=== PATIENT | female | born 1935 | race Caucasian/White ===

== ENCOUNTER 2019-04-27 07:24 | Day surgery (SDC) | payer OTHER, MEDICARE ==
[2019-04-22 10:39] VITALS: BMI 22.3
[2019-04-27] MEDS ORDERED: MIDAZOLAM HCL 2 MG/2 ML SINGLE DOSE VIAL ONE (07:47)
[2019-04-27] MEDS ORDERED: ceFAZolin SODIUM 1 GM VIAL ONE (08:55)
[2019-04-27] MEDS ORDERED: PROPOFOL 20 ML ONE ×4 (08:56→13:10)
[2019-04-27] MEDS ORDERED: POVIDONE-IODINE 5% OPHTHALMIC PREP 30 ML SOLUTION ONE (10:29)
[2019-04-27] MEDS ORDERED: LIDOCAINE 1%/EPI 1:100000 (20 ML MULTI DOSE VIAL) ONE (10:30)
[2019-04-27] MEDS ORDERED: BUPIVACAINE HCL/PF 0.5% (5MG/ML) 10 ML VIAL ONE (10:30)
[2019-04-27] MEDS ORDERED: ERYTHROMYCIN 0.5% OPHTHALMIC OINTMENT 3.5 GM TUBE ONE (10:45)
[2019-04-27] MEDS ORDERED: DEXAMETHASONE SOD PHOSPHATE 4 MG/1 ML VIAL ONE (11:02)
[2019-04-27] MEDS ORDERED: ONDANSETRON 4 MG/2 ML VIAL ONE (11:02)
[2019-04-27] MEDS ORDERED: GUM MASTIC/STORAX/MSAL/ALCOHOL 1 DRP DROPSBTL MC ONE (12:42)
[2019-04-27] MEDS ORDERED: oxyCODONE HCL 5 MG TABLET PO PRN (14:25)
[2019-04-27] MEDS ORDERED: ONDANSETRON 4 MG/2 ML VIAL IVPUSH PRN (14:25)
[2019-04-27] MEDS ORDERED: LACTATED RINGERS SOLUTION 1,000 ML IV SCH (14:30)
--- NOTE | 2019-04-27 14:43 | OP ---
DATE OF OPERATION: 04/27/2019 PREOPERATIVE DIAGNOSIS: Extensive defect, right medial canthus, right nasal sidewall, right lower lid, status post Mohs excision of tumor. POSTOPERATIVE DIAGNOSIS: Extensive defect, right medial canthus, right nasal sidewall, right lower lid, status post Mohs excision of tumor. PROCEDURE: 1. Debridement and tailoring of defect, right medial canthus. 2. Glabellar rotational flap to right medial canthus. 3. Rhomboid rotational flap from right cheek to right medial canthus. 4. Skin muscle flap advancement from right lower lid to right medial canthus. 5. Right medial canthoplasty. 6. Lateral canthal tendon plication, right lower lid. SURGEON: Jamila Allen MD ANESTHESIA: LMA. COMPLICATIONS: None. ESTIMATED BLOOD LOSS: 10 to 20 mL. OPERATIVE REPORT: Patient brought to the operating room, placed on the operating room table. Vital signs monitored by Anesthesia. Tetracaine was placed in both eyes. The wound was photographed. It was determined that in order to close this wound due to varying depths of incision, it would be best to do rotational flaps. Therefore, glabella flap was marked out as was a rhomboid flap in the lower lid; however, the rhomboid flap would later be altered. Intravenous sedation was administered. Time-out was performed. A 50/50 mixture of 2% Xylocaine, 1:100,000 epinephrine, 0.5% Marcaine was injected diffusely throughout the glabellar region, forehead, nasal sidewall, dorsal nasal bridge, right lower lid, right supraorbital artery, and diffusely throughout the right cheek. The glabellar incision was carried out with a 15 blade, and the glabella flap was elevated with wide undermining of the forehead and the dorsum of the nose, and the flap was rotated into position in the right medial canthus. Once in position, a deep suture taking bite of periosteum was passed through the periosteum and through the flap in the appropriate position and passed around 8-Austrian red rubber, a bolster securing the flap in position. The donor site at the forehead was then closed with deep 3-0 chromic sutures, and the flap itself was secured subcutaneously with interrupted 4-0 and 5-0 chromic or Vicryl leaving a smaller rhomboid in the lower portion of the defect. A subciliary incision was now made across the right lower lid extending out to the lateral canthus and the skin muscle flap in the right lower lid was developed and advanced nasally and secured to the deep medial canthal tendon tissues with 5-0 Vicryl sutures, and this was closed with a running 6-0 plain suture. However, before closing the temporal end of the incision, the lateral canthal tendon was plicated with double-armed 5-0 Vicryl to the internal surface of the orbital rim, slightly high horizontal, in order to support it during the healing phase. Then the subciliary incision was closed. At this point, the rhomboid was measured, and the initial defect was about 22 mm x 30 mm in size. This defect was significantly smaller, around 15-18 mm, and therefore, rhomboid flap was marked out inferolaterally. This was incised with a 15 blade and then elevated. Vertical spreading with a Nevarez scissors in the deep dermis was used to mobilize the tissue. After wide undermining of the donor site, the cheek was closed with 3-0 chromic sutures. The graft was thinned as was the glabella graft as needed to contour it with the eyelid skin and canthus on the contralateral side. Then the rhomboid flap was rotated up into the medial canthus and was secured there with a double-armed 5-0 Prolene suture passed through the flap and then through a number 8-Austrian red rubber with bolster securing it into position. Meticulous completion of the surgery was carried out with 5-0 Vicryl and 5-0 chromic sutures closing the deep tissues along the rhomboid flap and along the donor site in the cheek and with meticulous attention to plastic technique. A standard cutaneous deformity was excised at the superior temporal end of the rotated rhomboid flap and then this superior end of the flap was closed to the advanced skin muscle flap of the eyelid with running 6-0 plain suture. The glabella flap was secured to the rhomboid flap where they met with 6-0 plain suture, and the remainder of the skin was closed with running and interrupted 5-0 plain suture with plastic technique. This completed the rhomboid flap, the glabella flap, the skin muscle flap, the lateral canthal tendon plication, and the right medial canthoplasty. Erythromycin ointment was placed on all the sutures. Telfa was placed on the sutures and then the eye was closed and eyepatch and fluff were taped over the eye and secured with Mastisol and paper tape, and the patient was taken to the recovery room in stable condition. JAMILA ALLEN M.D. [id number]
[2019-04-27] MEDS ORDERED: ACETAMINOPHEN 325 MG TABLET (FP) ONE (14:48)
[2019-04-27 16:14] VITALS: TEMP 97.6
[2019-04-27 16:34] VITALS: BP 109/60; PULSE 71
== END 2019-04-27 16:38 | disposition home or self-care (01) ==
LOC: FASU 07:24
PROVIDERS: ATTEND Ophthalmology
PROC: 0HX1XZZ Transfer Face Skin, External Approach (ICD-10-PCS; 2019-04-27)
PROC: 08BQ0ZZ Excision of Right Lower Eyelid, Open Approach (ICD-10-PCS; principal; 2019-04-27 11:29)
DX: H02.89 Other specified disorders of eyelid (principal); Z85.828 Personal history of other malignant neoplasm of skin
CPT/HCPCS: 94760